=== PATIENT | male | born 1960 | race Caucasian/White ===

== ENCOUNTER 2017-01-22 11:08 | Emergency (ER) | payer MEDICARE, OTHER ==
[2017-01-22 11:14] VITALS: BP 125/66
== END 2017-01-22 12:36 | disposition home or self-care (01) ==
LOC: ED 11:08
DX: R04.2 Hemoptysis (principal)
CPT/HCPCS: 99282

== ENCOUNTER 2017-01-22 12:51 | Emergency (ER) | payer MEDICARE, OTHER ==
[2017-01-22 13:13] VITALS: BP 123/73
--- NOTE | 2017-01-22 14:08 | RAD ---
INDICATION: Chest discomfort last week. Chronic blood in sputum. COMPARISON: May 19, 2016 TECHNIQUE: Dual energy PA and routine lateral views of the chest were obtained. REPORT: Clear lungs and pleural spaces. Negative for pneumothorax. The heart, pulmonary vasculature, and mediastinal contours are unremarkable. Unremarkable osseous structures and soft tissue contours. IMPRESSION: No evidence for acute intrathoracic disease.
--- NOTE | 2017-01-22 14:56 | UC ---
Amy Joe Alok, scribed for Niurka Brown MD on 01/22/17 at 1327 . Complaint Male HPI - HPI Summary HPI Summary: 56 y/o male presents to the for c/o blood in saliva every morning since most recent KS (May 2016), but seemed a little worse this morning. Notes blood when spits out water while brushing teeth. Denies oral pain. Wears a partial upper plate, but doesn't bother him, and takes out to brush. No foul taste reported. Pt denies SOB, CP, or palpitations, but does state experiencing palpitations one week earlier. Last saw correctional officer sergeant approx 1 month ago, routine (Dr. Espana ). PMHx also includes DM, KS x 2 (2010, 2015 - stent). Last HgbA1C unclear, thinks a little elevated but was 6.6 several months ago. No GI Symptoms. No brbpr, no melena. No blood in urine. No rash. PCP Dr. Lomeli, spoke with him this morning, does not yet have appt but will f/ u soon. Has a regular Dentist, but does not recall name. He contacted his correctional officer sergeant's office Dr. Meyer, the office ([facility]) advised him to go to the ED to be seen. Pt currently takes Xarelto and Clopidogrel. - History of Current Complaint Chief Complaint: UCGeneralIllness Stated Complaint: BLOOD IN SALIVIA Time Seen by Provider: 01/22/17 13:19 Hx Obtained From: Patient Onset/Duration: Gradual Onset, Lasting Weeks, Still Present Timing: Constant Severity Initially: Moderate Severity Currently: Moderate Pain Intensity: 0 Pain Scale Used: 0-10 Numeric Aggravating Factor(s): Nothing Alleviating Factor(s): Nothing Associated Signs And Symptoms: Negative: Hematuria, Blood in Stool - Allergies/Home Medications Allergies/Adverse Reactions: Allergies Allergy/AdvReac Type Severity Reaction Status Date / Time No Known Allergies Allergy Verified 01/22/17 12:59 PMH/Surg Hx/FS Hx/Imm Hx Previously Healthy: No - see hpi Endocrine History Of: Reports: Diabetes Cardiovascular History Of: Reports: Cardiac Disorders - stents 2 yrs ago after KS, Hypertension - WELL CONTROLLED WITH MEDICATION Denies: Pacemaker/ICD Respiratory History Of: Denies: Pulmonary Embolism GI/ History Of: Reports: Ulcer - ULCERS IN 1999 - Surgical History Surgical History: Yes Surgery Procedure, Year, and Place: [facility] -PROMUS & ION - MAX SPAT GRAD.<900GAUSS/CM FOR 1.5 & 3.O T }. CARDIAC STENT -05/19/16 {[employer] - FOR 1.5 & 3.0T -MAX.SPAT.GRAD. = 2300Gauss/cm SCAN IN NORMAL MODE}. Rt INDEX FINGER - GANGLION CYST REMOVED - Family History Known Family History: Positive: Diabetes - Social History Occupation: Unemployed Lives: With Family - Sister Alcohol Use: Rare Substance Use Type: None Smoking Status (MU): Never Smoked Tobacco - Immunization History Most Recent Influenza Vaccination: 07/2015 Most Recent Tetanus Shot: within 10 yrs Most Recent Pneumonia Vaccination: no Review of Systems Constitutional: Negative Skin: Negative Eyes: Negative ENT: Other - Blood in Saliva. see hpi Respiratory: Negative Cardiovascular: Palpitations - 1 week prior Gastrointestinal: Negative Genitourinary: Negative Motor: Negative Neurovascular: Negative Musculoskeletal: Negative Neurological: Negative Psychological: Negative All Other Systems Reviewed And Are Negative: Yes Physical Exam Triage Information Reviewed: Yes Appearance: Well-Nourished - sitting up. Conversing easily and appropriately. NAD. Vital Signs: Initial Vital Signs Temp 98.5 F 01/22/17 13:01 Pulse 61 01/22/17 13:01 Resp 18 01/22/17 13:01 BP 123/73 01/22/17 13:01 Pulse Ox 97 01/22/17 13:01 Vital Signs Reviewed: Yes Eye Exam: Normal ENT: Positive: Other: - Gums irritated, no obvious sores. + dental upper plate - removed w/o problem identified. Post pharynx unremarkable. Left lateral tongue with a red, irritated region approx 1cm x 2cm. Tongue not elevated. Dental Exam: Other - see above Neck exam: Normal Neck: Positive: Supple, Nontender, No Lymphadenopathy Respiratory Exam: Normal Respiratory: Positive: Chest non-tender, Lungs clear, Normal breath sounds, No respiratory distress, No accessory muscle use Cardiovascular: Positive: Brisk Capillary Refill, Murmur:Sys:Grade _?_/ - Systolic ejection left sternal quarter Abdominal Exam: Normal Abdomen Description: Positive: Nontender, No Organomegaly, Soft Bowel Sounds: Positive: Present Musculoskeletal Exam: Normal Musculoskeletal: Positive: Strength Intact Neurological Exam: Normal - Nonfocal, Grossly intact Psychological Exam: Normal - Conversing easily and appropriately Skin Exam: Normal - No visible or reported rashes Diagnostics - Radiology CXR Xray Interpretation: Positive (See Comments) - IMPRESSION: No evidence for acute intrathoracic disease. Radiology Interpretation Completed By: Radiologist - EKG Cardiac Rhythm: Sinus: New - SR 65 bpm. MN 203 QTc 411 Complaint Male Course/Dx - Course Course Of Treatment: No new problems while in [facility]. [facility] nonactionable. EKg x 2 (#1 and #2 repeat) noted. D/w Dr. Morton via telephone, faxed EKG to his office, he kindly reviewed. No immediate issues, asked for 2nd ekg as well. He would like Mr. Lin to f/u with Dr. Meyer in the next week or two regarding last week's palpitations. . D/w Mr. Lin - he will call for appt with pcp, correctional officer sergeant, and dentist. Etiology for sore unclear, this will need to be evaluated further. Will rx for possible thrush in the meantime. Blood work obtained. cbc, cmp, vit d25oh, vit b12. Mr. Lin was given the opportunity to ask several questions, to which I answered to the best of my ability. - Differential Dx/Diagnosis Provider Diagnoses: Tongue sore. Blood in saliva. Cardiac history, palpitation last week - Physician Notifications Discussed Patient Care With: Paged Dr. Meyer (Cardiology) @ [phone] Discharge - Discharge Plan Condition: Stable Disposition: HOME Prescriptions: Nystatin SUSPENSION ORAL SYR* 500,000 units PO QID #1 bottle Patient Education Materials: Oral Candidiasis (ED) Referrals: Drake Meyer MD [Medical Doctor] - Barry Lomeli MD [Primary Care Provider] - Additional Instructions: You have a sore on your tongue. Please follow up with your primary care physician, Dr. Lomeli, and your Dentist to have this looked at. Nystatin suspension (in the case of oral thrush - see above). Blood tests ordered: CBC CMP Vitamin B12 Vitamin D25OH PT/INR Follow up with Dr. Lomeli this week. Follow up with Dr. Meyer within 1-2 weeks. Go to the Emergency Department for any worse or new problems. The documentation as recorded by the Amy miller Alok accurately reflects the service I personally performed and the decisions made by me, Niurka Brown MD.
[2017-01-22 18:37] LABS: Hematocrit 42 % (42-52); Hemoglobin 13.9 g/dl (14.0-18.0); Mean Corpuscular HGB Conc 34 g/dl (31-36); Mean Corpuscular Hemoglobin 29 pg (27-31); Mean Corpuscular Volume 85 fL (80-94); Mean Platelet Volume 9 um3 (7.4-10.4); Red Blood Count 4.89 10^6/ul (4.0-5.4); Red Cell Distribution Width 14 % (10.5-15); White Blood Count 6.1 10^3/ul (3.5-10.8)
[2017-01-22 18:51] LABS: Albumin 4.6 g/dL (3.2-5.2); BUN/Creatinine Ratio 27.3 (8-20); Calcium 9.9 mg/dL (8.6-10.3); EGFR African American 134.4 (>60); EGFR Non-African American 104.5 (>60); Globulin 2.5 g/dL (2-4); Potassium 4.1 mmol/L (3.5-5.0); Total Bilirubin 0.4 mg/dL (0.2-1.0); Total Protein 7.1 g/dL (6.4-8.9)
== END 2017-01-22 14:57 | disposition home or self-care (01) ==
LOC: UCEAST 12:51
DX: K14.0 Glossitis (principal); R04.2 Hemoptysis; E11.9 Type 2 diabetes mellitus without complications; I25.2 Old myocardial infarction; I10 Essential (primary) hypertension; Z95.5 Presence of coronary angioplasty implant and graft
CPT/HCPCS: 36415; 71020; 80053; 82306; 82607; 85025; 85610; 93005; 99212; G0463

== ENCOUNTER 2019-06-28 01:21 | Emergency (ER) | payer MEDICARE ==
[2019-06-28] MEDS ORDERED: NS 0.9% 1000 ML** 1,000 ML IV ONE (01:28)
[2019-06-28] MEDS ORDERED: Diltiazem IV push/loading dose 5 MG/ML 5 ML vial (25 mg) IV SLOW PU ONE (01:29)
--- NOTE | 2019-06-28 01:33 | ED ---
HPI Chest Pain - HPI Summary HPI Summary: This patient is a 59 year old M presenting to [facility] with a chief complaint of pressure in chest since 00:10. The pressure began at 00:10, and it woke him up from his sleep. Pt has been given NTG. Symptoms alleviated by NTG. Pt has a PMHx of a fib, and reports that the symptoms are similar to previous episodes. Patient denies CP, dizziness, or feeling light headed. - History of Current Complaint Time Seen by Provider: 06/28/19 01:25 Hx Obtained From: Patient Onset/Duration: Started Hours Ago, Still Present Time of Onset: 00:10 Timing: Constant Current Severity: None Pain Intensity: 0 Pain Scale Used: 0-10 Numeric - 0 Character: Pressure/Squeezing Aggravating Factor(s): Nothing Alleviating Factor(s): NTG 123 Associated Signs and Symptoms: Positive: Other: - pos - pressure in chest. Negative: Chest Pain, Dizziness, Lightheadedness - Additional Pertinent History Primary Care Physician: ANGELICA - Allergy/Home Medications Allergies/Adverse Reactions: Allergies Allergy/AdvReac Type Severity Reaction Status Date / Time No Known Allergies Allergy Verified 01/22/17 12:59 PMH/Surg Hx/FS Hx/Imm Hx Endocrine/Hematology History: Reports: Hx Diabetes Denies: Hx Thyroid Disease Cardiovascular History: Reports: Hx Coronary Artery Disease, Hx Hypertension - WELL CONTROLLED WITH MEDICATION, Other Cardiovascular Problems/Disorders - BUNDLE BRANCH BLOCK, STENTS Denies: Hx Congestive Heart Failure, Hx Deep Vein Thrombosis, Hx Myocardial Infarction, Hx Pacemaker/ICD Respiratory History: Denies: Hx Asthma, Hx Chronic Obstructive Pulmonary Disease (COPD), Hx Lung Cancer, Hx Pneumonia, Hx Pulmonary Edema, Hx Pulmonary Embolism, Other Respiratory Problems/Disorders GI History: Reports: Hx Gastroesophageal Reflux Disease - WELL CONTROLLED WITH MEDICATION, Hx Ulcer - ULCERS IN 1999 Denies: Hx Gall Bladder Disease, Hx Gastrointestinal Bleed, Hx Urosepsis History: Denies: Hx Kidney Stones, Hx Renal Disease, Other Problems/Disorders Musculoskeletal History: Reports: Hx Back Problems, Other Musculoskeletal History - stenosis, deteriorated discs, hip pain Sensory History: Denies: Hx Contacts or Glasses, Hx Hearing Aid Opthamlomology History: Denies: Hx Contacts or Glasses Neurological History: Denies: Hx Dementia, Hx Migraine, Hx Seizures, Hx Transient Ischemic Attacks (TIA), Other Neuro Impairments/Disorders Psychiatric History: Denies: Hx Anxiety, Hx Depression, Hx Panic Disorder, Hx Schizophrenia, Hx Bipolar Disorder - Surgical History Surgery Procedure, Year, and Place: 2 CARDIAC STENTS 05/31 [facility] {[employer] -PROMUS & ION - MAX SPAT GRAD.<900GAUSS/CM FOR 1.5 & 3.O T }. CARDIAC STENT -05/19/16 {[employer] - FOR 1.5 & 3.0T -MAX.SPAT.GRAD. = 2300Gauss/cm SCAN IN NORMAL MODE}. Rt INDEX FINGER - GANGLION CYST REMOVED. APPY Hx Anesthesia Reactions: No Infectious Disease History: Denies: Hx Shingles, History Other Infectious Disease - Family History Known Family History: Positive: Cardiac Disease, Diabetes - Social History Alcohol Use: Occasionally Hx Substance Use: No Substance Use Type: Reports: None Hx Tobacco Use: No Smoking Status (MU): Never Smoked Tobacco Review of Systems Positive: Other - chest pressure. Negative: Chest Pain Negative: Shortness Of Breath Neurological: Other - neg - dizziness, lightheadedness All Other Systems Reviewed And Are Negative: Yes Physical Exam - Summary Physical Exam Summary: Appearance: Well-appearing, Well-nourished, lying in bed comfortably Skin: Warm, dry, no obvious rash Eyes: sclera anicteric, no conjunctival pallor ENT: mucous membranes moist, pharynx appears normal Neck: Supple, nontender Respiratory: Clear to auscultation, no signs of respiratory distress Cardiovascular: Normal S1, S2. Normal distal pulses in tibial and radial bilaterally; Heart Rate is rapid and irregularly irregular, soft systolic murmur. Abdomen: Soft, nontender, normal active bowel sounds present Musculoskeletal: Normal, Strength/ROM Intact Neurological: A&Ox3, awake and alert, mentation is normal, speech is fluent and appropriate Psychiatric: affect is normal, does not appear anxious or depressed Triage Information Reviewed: Yes Vital Signs On Initial Exam: Initial Vital Signs Temp 97.5 F 06/28/19 01:27 Pulse 171 06/28/19 01:27 Resp 20 06/28/19 01:27 BP 101/71 06/28/19 01:27 Pulse Ox 100 06/28/19 01:27 Vital Signs Reviewed: Yes Procedures - Procedure Summary Procedure Summary: Procedure: IV conscious sedation Indication: Informed consent obtained, pre-procedure worksheet completed, timeout completed. Pt on monitor, with O2 and resuscitation equipment at the bedside. Pt was given propofol, 100 mg total, with good effect. Pt remained arousable to painful stimuli, but was adequately sedated for the procedure. Once pt was adequately sedated he underwent synchronized cardioversion at 150J, with conversion to NSR. Pt was recovered uneventfully. - Additional Procedures Additional Procedures: cardioversion/defib - Electrical cardioversion at 150 J synchronized, with conversion to sinus rhythm. Diagnostics - Laboratory Result Diagrams: 06/28/19 01:40 06/28/19 01:40 Lab Statement: Any lab studies that have been ordered have been reviewed, and results considered in the medical decision making process. - Radiology CXR Radiology Interpretation Completed By: ED Physician Summary of Radiographic Findings: CXR reveals, per ED physician, no acute processes. Pending official radiology report. - EKG 0127 Summary of EKG Findings: An EKG at 0127 reveals irregular wide complex tachycardia suspect A fib; RVR and aberrant conduction. 0332 Cardiac Rate: NL - 72 bpm EKG Rhythm: Sinus Rhythm Summary of EKG Findings: An EKG at 0332 NSR converted from A fib. PAC; no ischemia. Re-Evaluation - Re-Evaluation First Eval Re-Evaluation Time: 01:33 Comment: Discussed probable plan of care with pt. Second Eval Re-Evaluation Time: 01:45 Comment: Checked on pt. Third Eval Re-Evaluation Time: 02:35 Comment: Cardioversion Fourth Eval Re-Evaluation Time: 02:57 Comment: Pt is awake and alert Chest Pain Course/Dx - Course Course Of Treatment: This patient is a 59 year old M presenting to [facility] with a chief complaint of pressure in chest since 00:10. The pressure began at 00:10, and it woke him up from his sleep. Pt has been given NTG. Symptoms alleviated by NTG. Pt has a PMHx of a fib, and reports that the symptoms are similar to previous episodes. Patient denies CP, dizziness, or feeling light headed. As his rate did not adequately respond to IV diltiazem, and he is already on anticoagulation, we elected to treat his arrhythmia with synchronized cardioversion. I discussed this with the patient and he was in agreement. Physical exam findings is nml except heart Rate is rapid and irregularly irregular, and soft systolic murmur. Blood work obtained. Potassium is 3.4, Carbon Dioxide is 20, Anion Gap is 13, BUN is 26 BUN/Creatinine Ratio is 37.1, Glucose is 243. An EKG at 0127 reveals irregular wide complex tachycardia suspect A fib; RVR and aberrant conduction. An EKG at 0332 NSR converted from A fib. PAC; no ischemia. CXR reveals, per ED physician, no acute processes. Procedure: IV conscious sedation. Indication: Informed consent obtained, pre- procedure worksheet completed, timeout completed. Pt on monitor, with O2 and resuscitation equipment at the bedside. Pt was given propofol, 100 mg total, with good effect. Pt remained arousable to painful stimuli, but was adequately sedated for the procedure.Pt was recovered uneventfully. Pt was cardioverted. Electrical cardioversion at 150 J synchronized, with conversion to sinus rhythm. In the ED course the patient was given fluids, and Cardizem IV. Patient will be discharged with follow up from [facility]. The patient is agreeable with this plan. - Diagnoses Provider Diagnoses: Atrial fibrillation with rapid ventricular response - Critical Care Time Critical Care Time: 30-74 min - 40 mins Discharge ED - Sign-Out/Discharge Documenting (check all that apply): Patient Departure - Discharge Patient Received Moderate/Deep Sedation with Procedure: Yes - Discharge Plan Condition: Improved Disposition: HOME Patient Education Materials: A-fib (Atrial Fibrillation) (ED), Moderate Sedation (ED) Referrals: Caio Delaney MD [Medical Doctor] - 3 Days Additional Instructions: You went into atrial fibrillation again, but we were able to get you back to a normal rhythm with an electrical cardioversion. Continue the medications prescribed, and contact the [facility] managed care's office on Saturday for followup. They will probably want to see you soon to see if you need a medication adjustment. - Billing Disposition and Condition Condition: IMPROVED Disposition: Home - Attestation Statements Document Initiated by Scribe: Yes Documenting Scribe: Narda Velazquez Provider For Whom Scribe is Documenting (Include Credential): Kashmir Eubanks MD Scribe Attestation: Narda Joe, scribed for Kashmir Eubanks MD on 06/28/19 at 0519. Scribe Documentation Reviewed: Yes Provider Attestation: The documentation as recorded by the scribe, Narda Velazquez accurately reflects the service I personally performed and the decisions made by me, Kashmir Eubanks MD Status of Scribe Document: Viewed
[2019-06-28] MEDS ORDERED: Diltiazem IV VIAL* 125 MG in NS 0.9% 100 ML* 100 ML IV ONE (01:37)
[2019-06-28 01:49] LABS: ABS Basophils 0.1 10^3/ul (0-0.2); ABS Eosinophils 0.2 10^3/ul (0-0.6); ABS Lymphocytes 3.2 10^3/ul (1.0-4.8); ABS Neutrophils 5.4 10^3/ul (1.5-7.7); Eosinophil % 1.9 %; Hematocrit 43 % (42-52); Hemoglobin 14.5 g/dL (14.0-18.0); Lymphocyte % 32.5 %; Mean Corpuscular HGB Conc 34 g/dL (31-36); Mean Corpuscular Hemoglobin 30 pg (27-31); Mean Corpuscular Volume 88 fL (80-94); Mean Platelet Volume 8.6 fL (7.4-10.4); Nucleated Red Blood Cells % 0.1; Platelet Count 151 10^3/uL (150-450); Red Blood Count 4.84 10^6 /uL (4.18-5.48); Red Cell Distribution Width 14 % (10-15); White Blood Count 9.9 10^3/uL (3.5-10.8)
[2019-06-28 02:07] LABS: Albumin 4.3 g/dL (3.2-5.2); Albumin/Globulin Ratio 1.9 (1-3); BUN/Creatinine Ratio 37.1 (8-20); Calcium 9.7 mg/dL (8.6-10.3); EGFR African American 139.7 (>60); EGFR Non-African American 115.4 (>60); Globulin 2.3 g/dL (2-4); Potassium 3.4 mmol/L (3.5-5.0); Total Bilirubin 0.4 mg/dL (0.2-1.0); Total Protein 6.6 g/dL (6.4-8.9)
[2019-06-28 02:09] LABS: Troponin I 0.02 ng/mL (<0.04)
[2019-06-28] MEDS ORDERED: Propofol* 10 MG/ML 20 ML BTL IV PUSH ONE (02:28)
[2019-06-28 04:21] VITALS: BP 113/76
== END 2019-06-28 04:05 | disposition home or self-care (01) ==
LOC: ED 01:21
DX: I48.2 Chronic atrial fibrillation (principal); E11.9 Type 2 diabetes mellitus without complications; I25.10 Atherosclerotic heart disease of native coronary artery without angina pectoris; I10 Essential (primary) hypertension; K21.9 Gastro-esophageal reflux disease without esophagitis; Z79.01 Long term (current) use of anticoagulants; Z79.82 Long term (current) use of aspirin; Z79.84 Long term (current) use of oral hypoglycemic drugs; Z79.899 Other long term (current) drug therapy
CPT/HCPCS: 36415; 71045; 80053; 83605; 84484; 85025; 93005; 96361; 96365; 96375; 99285; J2704